=== PATIENT | female | born 1955 | race Caucasian/White ===

== ENCOUNTER 2020-06-25 20:26 | Inpatient (IN) | payer OTHER ==
[2020-06-25] MEDS ORDERED: FENTANYL CITRATE INJ/PF 100 MCG/2 ML AMPUL IV ONE (20:44)
--- NOTE | 2020-06-25 20:46 | ER Document Report ---
ED General - General Stated Complaint: LEG INJURY Time Seen by Provider: 06/25/20 20:42 Notes: Presents with right thigh pain and deformity. She is stepping down 3 feet from a dog to a boat heard a crunch and fell to the ground. No LOC no head impact no blood thinners. Osteopenia. No numbness or tingling the right leg. Deformed per EMS with some slight shortening and possibly diminished pulse She denies any other injuries and has no other history. - Related Data Allergies/Adverse Reactions: No Known Allergies Allergy (Unverified 06/25/20 21:06) Past Medical History - General Information source: Patient - Social History Smoking Status: Never Smoker Family History: None Review of Systems - Review of Systems Notes: REVIEW OF SYSTEMS GEN: Denies fever, chills, weight loss ENT: Denies sore throat, nasal discharge, ear pain EYES: Denies blurry vision, eye pain, discharge CV: Denies chest pain, palpitations, edema RESP: Denies cough, shortness of breath, wheezing GI: Denies abdominal pain, nausea, vomiting, diarrhea MSK: Right leg pain SKIN: Denies rash, skin lesions LYMPH: Denies swollen glands/lymph nodes NEURO: Denies headache, focal weakness or numbness, dizziness PSYCH: Denies depression, suicidal or homicidal ideation PHYSICAL EXAMINATION General: No acute distress, well-nourished Head: Atraumatic, normocephalic ENT: Mouth normal, oropharynx moist, no exudates or tonsillar enlargement Eyes: Conjunctiva normal, pupils equal, lids normal Neck: No JVD, supple, no guarding CVS: Normal rate, regular rhythm, no murmurs Resp: No resp distress, equal and normal breath sounds bilaterally GI: Nondistended, soft, no tenderness to palpation, no rebound or guarding Ext: Leg shortened and deformed in the femur area with no hematoma or tight compartments. Right pedal pulse slightly decreased but palpable. Skin: No rash, warm Lymphatic: No lymphadeopathy noted Neuro: Awake, alert. Face symmetric. GCS 15. Normal strength and sensation in the right foot. Physical Exam - Vital signs Vitals: Temp 98.5 F 06/25/20 21:07 Course - Re-evaluation Re-evalutation: 06/25/20 21:01 Isolated right leg injury likely reflects femoral shaft fracture X-ray confirms After the leg was straightened for the x-ray the pulse improved. No neuro deficits. Will get basic labs and x-ray joint above and below Discussed with Dr. Pineda from orthopedics will admit and repair the fracture 06/25/20 22:41 X-ray shows transverse femoral shaft fracture. With the leg extended and slightly stretched length is nearly restored and the pulses good this is as of example at about 10:30 PM. Pain is controlled compartment is soft neuro status intact. Spent over 2 hours since I requested traction per Dr. Pineda he is not sure where to get it or not sure where to get it clinical nursing intern is trying to find it. Labs normal. Discussed with patient and . Will admit and will be repaired in the morning. - Vital Signs Vital signs: Temp Pulse Resp BP Pulse Ox 98.5 F 19 123/69 95 06/25/20 21:11 06/25/20 22:01 06/25/20 22:01 06/25/20 22:01 - Laboratory Result Diagrams: 06/25/20 21:30 06/25/20 21:30 - Diagnostic Test Radiology reviewed: Image reviewed, Reports reviewed Discharge - Discharge Clinical Impression: Right femoral shaft fracture Qualifiers: Encounter type: initial encounter Fracture type: closed Fracture morphology: transverse Fracture alignment: displaced Qualified Code(s): S72.321A - Displaced transverse fracture of shaft of right femur, initial encounter for closed fracture Condition: Fair Disposition: ADMITTED INPATIENT Admitting Provider: Carmelo Pineda ORTHO Unit Admitted: Surgical Floor
[2020-06-25] MEDS ORDERED: DEXTROSE 5%-LACTATED RINGERS 1,000 ML IV PRN (21:11)
[2020-06-25] MEDS ORDERED: MAGNESIUM HYDROXIDE SUSP 30 ML UDCUP PO PRN (21:11)
[2020-06-25] MEDS ORDERED: MAG HYDROX/AL HYDROX/SIMETH SUSP 30 ML UDCUP PO PRN (21:11)
[2020-06-25] MEDS ORDERED: ZOLPIDEM TARTRATE 5 MG TABLET PO PRN (21:11)
[2020-06-25] MEDS ORDERED: CYCLOBENZAPRINE HCL 10 MG TABLET PO PRN (21:25)
[2020-06-25] MEDS ORDERED: OXYCODONE HCL IR 5 MG TABLET PO PRN (21:26)
--- NOTE | 2020-06-25 21:35 | RADIOLOGY REPORT (SQ) ---
CLINICAL INDICATION: fall def. Pain post fall. TECHNIQUE: 2 view(s) were obtained of the right knee. Imaging somewhat oblique COMPARISON: None. FINDINGS: No acute displaced fracture is identified of the knee. Alignment appears anatomic. Joint spaces are within normal limits for age. No significant joint effusion. Surrounding soft tissues are unremarkable. IMPRESSION: No evidence of acute displaced fracture of the knee.
[2020-06-25 21:40] LABS: ABSOLUTE MONOCYTES (AUTO) 0.6 10^3/uL (0.1-1.4); ABSOLUTE NEUT (AUTO) 7.4 10^3/uL (1.7-8.2); BASOPHILS % (AUTO) 0.5 % (0-2); EOSINOPHILS % (AUTO) 0.3 % (0-6); HEMATOCRIT 37.3 % (36.0-47.0); HEMOGLOBIN 13.1 g/dL (12.0-15.5); LYMPHOCYTES % (AUTO) 10.6 % (13-45); MEAN CORPUSCULAR VOLUME 94 fl (80-97); MONOCYTES % (AUTO) 6.8 % (3-13); PLATELET COUNT 306 10^3/uL (150-450); RED BLOOD COUNT 3.96 10^6/uL (3.72-5.28); RED CELL DISTRIBUTION WIDTH 13.1 % (11.5-14.0); SEGMENTED NEUTROPHILS % (AUTO) 81.8 % (42-78); TOTAL CELLS COUNTED % (AUTO) 100 %
--- NOTE | 2020-06-25 21:42 | RADIOLOGY REPORT (SQ) ---
EXAM DESCRIPTION: XR FEMUR 2 VIEWS COMPLETED DATE/TME: 06/25/2020 20:42 CLINICAL HISTORY: 64 years, Female, fall def COMPARISON: None. NUMBER OF VIEWS: 5 TECHNIQUE: Frontal and lateral radiographs were obtained LIMITATIONS: None. FINDINGS: Visualized is an oblique fracture involving the right mid femoral diaphysis with anterior and lateral displacement of the distal fracture fragment. Superimposed apex lateral angulation is noted. No additional osseous anomalies are appreciated. IMPRESSION: Displaced/angulated oblique fracture involving the right mid femoral diaphysis. copyright 2010 [employer]- All Rights Reserved
[2020-06-25] MEDS: MORPHINE SULFATE 10 MG/ML INJ IV PRN (21:48)
[2020-06-25] MEDS: ONDANSETRON HCL INJ/PF 4 MG/2 ML SDV IV PRN (21:49)
[2020-06-25 21:58] LABS: ANION GAP 7 (5-19); BLOOD UREA NITROGEN 21 mg/dL (7-20); CALCIUM 9.3 mg/dL (8.4-10.2); CARBON DIOXIDE 27 mmol/L (22-30); CHLORIDE 107 mmol/L (98-107); GLUCOSE 123 mg/dL (75-110); POTASSIUM 3.9 mmol/L (3.6-5.0)
[2020-06-25] MEDS: OXYCODONE HCL IR 5 MG TABLET PO PRN (22:49)
[2020-06-26] MEDS: ACETAMINOPHEN 650 MG SUPP.RECT PR SCH ×4 (00:27→21:22)
[2020-06-26] MEDS: MORPHINE SULFATE 10 MG/ML INJ IV PRN ×5 (01:46→14:19)
[2020-06-26] MEDS: OXYCODONE HCL IR 5 MG TABLET PO PRN ×2 (02:52→21:26)
[2020-06-26] MEDS ORDERED: HYDRALAZINE HCL INJ/PF 20 MG/1 ML SDV IV PRN (03:24)
[2020-06-26] MEDS ORDERED: LORAZEPAM INJ 2 MG/1 ML VIAL IV PRN (03:24)
--- NOTE | 2020-06-26 03:24 | PDOC CONSULTATION ---
Consultation Consult Date: 06/25/20 Attending physician:: REY PINEDA JR Provider Consulted: JAKE BURROUGHS Consult reason:: Medical clearance for surgery History of Present Illness Admission Date/PCP: 06/25/20 21:24 No local PCP Patient complains of: Right thigh pain History of Present Illness: GEMINI NORTON is a 64 year old female who presented to the emergency room with acute right thigh pain. She admits stepping down from a a height of approximately 3 feet landing on her feet, but she experienced immediate pain in her right thigh and heard a crunching sound as she fell to the ground. The severe sharp gripping and grinding pain in her right thigh has been continuous since that time and does not radiate, but is made worse by any movement of the right leg. She denies other associated or accompanying signs and symptoms. She denies prior similar episodes. She has not identified any additional aggravating or ameliorating factors for her right thigh pain. In the emergency room she was found to have a oblique displaced right femoral midshaft fracture. She was subsequently admitted to the hospital to Dr. Pineda's care and he has asked the hospitalist service for consultation and medical clearance for surgery. Past Medical History Cardiac Medical History: Denies: Coronary Artery Disease, Hyperlipidema, Hypertension Pulmonary Medical History: Denies: Asthma, Chronic Obstructive Pulmonary Disease (COPD) EENT Medical History: Denies: Cataracts, Ears - Hearing aids Neurological Medical History: Denies: Hemorrhagic CVA, Ischemic CVA, Seizures Endocrine Medical History: Reports: Obesity Denies: Diabetes Mellitus Type 1, Diabetes Mellitus Type 2, Hyperthyroidism, Hypothyroidism Renal/ Medical History: Denies: Chronic Kidney Disease, Nephrolithiasis Malignancy Medical History: Reports: None GI Medical History: Denies: Cirrhosis, Gastroesophageal Reflux Disease, Hepatitis, Peptic Ulcer Disease Musculoskeltal Medical History: Reports: Other - Osteoporosis Denies: Arthritis, Fibromyalgia, Gout Skin Medical History: Denies: Eczema, Psoriasis Psychiatric Medical History: Denies: Alcohol Dependency, Depression, Substance Abuse, Tobacco Dependency Traumatic Medical History: Reports: None Hematology: Denies: Anemia, Bleeding Tendencies Infectious Medical History: Reports: None Past Surgical History Past Surgical History: Reports: Appendectomy, Orthopedic Surgery - Left foot and ankle surgery "to repair the arch" Social History Information Source: Patient Lives with: Spouse/Significant other Smoking Status: Never Smoker Electronic Cigarette use?: No Frequency of Alcohol Use: Occasional Hx Recreational Drug Use: No Drugs: None Hx Prescription Drug Abuse: No - Advance Directive Resuscitation Status: Full Code Surrogate healthcare decision maker:: Claudio Norton Family History Family History: denies: CAD, DM, Hypertension, Malignancy Parental Family History Reviewed: Yes Children Family History Reviewed: No Sibling(s) Family History Reviewed.: Yes Medication/Allergy Allergies/Adverse Reactions: No Known Allergies Allergy (Unverified 06/25/20 21:06) Review of Systems Constitutional: ABSENT: chills, fever(s) Eyes: ABSENT: visual disturbances, other - Eye pain Ears: ABSENT: hearing changes, other - Ear pain Nose, Mouth, and Throat: ABSENT: headache(s), sore throat Cardiovascular: ABSENT: chest pain, palpitations Respiratory: ABSENT: cough, dyspnea Gastrointestinal: ABSENT: abdominal pain, constipation, diarrhea, nausea, vomiting Genitourinary: ABSENT: dysuria, hematuria Musculoskeletal: ABSENT: back pain, joint swelling, muscle weakness Integumentary: ABSENT: pruritus, rash Neurological: ABSENT: confusion, convulsions, focal weakness, memory loss, syncope Psychiatric: ABSENT: anxiety, depression Endocrine: ABSENT: cold intolerance, heat intolerance Hematologic/Lymphatic: ABSENT: easy bleeding, easy bruising Allergic/Immunologic: ABSENT: seasonal rhinorrhea Physical Exam Vital Signs: Temp Pulse Resp BP Pulse Ox 98.2 F 77 20 140/72 H 99 06/25/20 23:49 06/25/20 23:49 06/25/20 23:49 06/25/20 23:49 06/25/20 23:49 Intake & Output 06/24/20 06/25/20 06/26/20 23:59 23:59 23:59 Intake Total 130 260 Output Total 200 Balance 130 60 Weight 72.5 kg General appearance: PRESENT: cooperative, severe distress - Secondary to right thigh pain Head exam: PRESENT: atraumatic, normocephalic Eye exam: PRESENT: conjunctiva pink. ABSENT: conjunctival injection, scleral icterus Ear exam: PRESENT: normal external ear exam. ABSENT: bleeding, drainage Mouth exam: PRESENT: dry mucosa, neck supple Neck exam: ABSENT: thyromegaly, tracheal deviation Respiratory exam: PRESENT: clear to auscultation sivan, symmetrical, unlabored Cardiovascular exam: PRESENT: RRR. ABSENT: clicks, gallop, rubs Pulses: PRESENT: normal radial pulses, normal dorsalis pedis pul Vascular exam: PRESENT: normal capillary refill. ABSENT: pallor GI/Abdominal exam: PRESENT: normal bowel sounds, soft. ABSENT: tenderness Rectal exam: PRESENT: deferred Extremities exam: PRESENT: tenderness - Right thigh. ABSENT: pedal edema Musculoskeletal exam: PRESENT: deformity - Right lower extremity with significant shortening, dislocation - Right thigh Neurological exam: PRESENT: alert, oriented to person, oriented to place, oriented to time, oriented to situation, CN II-XII grossly intact. ABSENT: motor sensory deficit Psychiatric exam: PRESENT: appropriate affect, normal mood Skin exam: PRESENT: dry, intact, warm. ABSENT: jaundice, rash, urticaria Results Laboratory Results: 06/25/20 21:30 06/25/20 21:30 06/25/20 06/25/20 21:30 21:30 WBC 9.0 RBC 3.96 Hgb 13.1 Hct 37.3 MCV 94 MCH 33.0 MCHC 35.0 RDW 13.1 Plt Count 306 Seg Neutrophils % 81.8 H Sodium 140.7 Potassium 3.9 Chloride 107 Carbon Dioxide 27 Anion Gap 7 BUN 21 H Creatinine 0.67 Est GFR ( Amer) > 60 Glucose 123 H Calcium 9.3 Impressions: Femur X-Ray 06/25/20 20:42 IMPRESSION: Displaced/angulated oblique fracture involving the right mid femoral diaphysis. copyright 2011 [employer]- All Rights Reserved Knee X-Ray 06/25/20 20:42 IMPRESSION: No evidence of acute displaced fracture of the knee. Assessment and Plan - Diagnosis (1) Closed displaced oblique fracture of shaft of right femur Qualifiers: Encounter type: initial encounter Qualified Code(s): S72.331A - Displaced oblique fracture of shaft of right femur, initial encounter for closed fracture Is this a current diagnosis for this admission?: Yes (2) Osteoporosis Qualifiers: Osteoporosis type: unspecified Presence of current pathological fracture: unspecified Qualified Code(s): M81.0 - Age-related osteoporosis without current pathological fracture Is this a current diagnosis for this admission?: Yes (3) Acute pain of right thigh Is this a current diagnosis for this admission?: Yes (4) Obesity (BMI 30.0-34.9) Is this a current diagnosis for this admission?: Yes - Plan Summary Summary: Patient is medically cleared for surgical repair of her right femoral fracture. She will be treated with IV fluids utilizing D5LR at 167 mL/h. She will receive morphine sulfate 2 to 4 mg IV every 2 hours as needed for pain. She will receive Ativan 1 mg IV every 4 hours as needed for anxiety or restlessness. She will be n.p.o. for surgery. - Time Time Spent with patient: 15-24 minutes Medications reviewed and adjusted accordingly: Yes Anticipated Discharge Disposition: Home with Home Health Anticipated Discharge Timeframe: Undetermined - Inpatient Certification Based on my medical assessment, after consideration of the patient's comorbidities, presenting symptoms, or acuity I expect that the services needed warrant INPATIENT care.: Yes I certify that my determination is in accordance with my understanding of Medicare's requirements for reasonable and necessary INPATIENT services [42 CFR 412.3e].: Yes Medical Necessity: Need for Pain Control, Need for Surgery
[2020-06-26] MEDS: PANTOPRAZOLE SODIUM 20 MG TABLET.DR PO SCH (05:18)
[2020-06-26] MEDS: DEXTROSE 5%-LACTATED RINGERS 1,000 ML IV PRN ×2 (08:13→14:14)
--- NOTE | 2020-06-26 08:45 | EKG REPORT ---
SEVERITY:- ABNORMAL ECG - SINUS RHYTHM NONSPECIFIC T ABNORMALITIES, INFERIOR LEADS BORDERLINE PROLONGED QT INTERVAL : Confirmed by: Serjio Mosquera MD 26-Jun-2020 08:44:03
[2020-06-26] MEDS: DOCUSATE SODIUM 100 MG CAPSULE PO SCH (09:19)
[2020-06-26] MEDS ORDERED: CEFAZOLIN 2 GM/D5W RTU 2 GM/50 ML RTUPB IV ONE (15:58)
--- NOTE | 2020-06-26 15:58 | PDOC H&P ---
History of Present Illness Admission Date/PCP: 06/25/20 21:24 Patient complains of: right thight pain History of Present Illness: GEMINI RIOS is a 64 year old female who was on her boat yesterday when she twisted her leg as she was stepping down feeling a pop in the right thigh and subsequent pain and inability to ambulate. She denies any prior history of pain in the thigh. She denies any other symptoms such as loss of motor function or numbness in the right lower extremity. She did not fall and cause head injury or other associated injury. Pain is located in the thigh, severe, 8 out of 10, worse with any motion, improved with rest, improved with pain medication, aching in nature. Past Medical History Cardiac Medical History: Denies: Coronary Artery Disease, Hyperlipidema, Hypertension Pulmonary Medical History: Denies: Asthma, Chronic Obstructive Pulmonary Disease (COPD) EENT Medical History: Denies: Cataracts, Ears - Hearing aids Neurological Medical History: Denies: Hemorrhagic CVA, Ischemic CVA, Seizures Endocrine Medical History: Reports: Obesity Denies: Diabetes Mellitus Type 1, Diabetes Mellitus Type 2, Hyperthyroidism, Hypothyroidism Renal/ Medical History: Denies: Chronic Kidney Disease, Nephrolithiasis Malignancy Medical History: Reports: None GI Medical History: Denies: Cirrhosis, Gastroesophageal Reflux Disease, Hepatitis, Peptic Ulcer Disease Musculoskeltal Medical History: Reports: Other - Osteoporosis Denies: Arthritis, Fibromyalgia, Gout Skin Medical History: Denies: Eczema, Psoriasis Psychiatric Medical History: Denies: Alcohol Dependency, Depression, Substance Abuse, Tobacco Dependency Traumatic Medical History: Reports: None Hematology: Denies: Anemia, Bleeding Tendencies Infectious Medical History: Reports: None Past Surgical History Past Surgical History: Reports: Appendectomy, Orthopedic Surgery - Left foot and ankle surgery "to repair the arch" Social History Lives with: Spouse/Significant other Smoking Status: Never Smoker Electronic Cigarette use?: No Frequency of Alcohol Use: Occasional Hx Recreational Drug Use: No Drugs: None Hx Prescription Drug Abuse: No - Advance Directive Resuscitation Status: Full Code Family History Family History: denies: CAD, DM, Hypertension, Malignancy Parental Family History Reviewed: No Children Family History Reviewed: NA Sibling(s) Family History Reviewed.: NA Medication/Allergy Home Medications: Aspirin [Adult Aspirin Regimen] 162 mg PO DAILY 06/26/20 Calcium Carbonate [Calcium] 500 mg PO DAILY 06/26/20 Cholecalciferol (Vitamin D3) [Vitamin D3] 50 mcg PO DAILY 06/26/20 Cyanocobalamin (Vitamin B-12) [B-12] 1,000 mcg PO DAILY 06/26/20 Liraglutide [Saxenda] 18 mg INJ ASDIR PRN 06/26/20 Mv,Calcium,Min/Iron/Folic/Vitk [Multi For Her Tablet] 1 each PO DAILY 06/26/20 Eek-3/Dha/Epa/Fish Oil [Fish Oil 1,000 mg Softgel] 1 each PO DAILY 06/26/20 Allergies/Adverse Reactions: No Known Allergies Allergy (Unverified 06/25/20 21:06) Review of Systems Review of Systems: Constitutional: ABSENT: anorexia, chills, night sweats Cardiovascular: ABSENT: chest pain Respiratory: ABSENT: dyspnea Gastrointestinal: ABSENT: vomiting Genitourinary: ABSENT: dysuria Integumentary: ABSENT: rash Neurological: ABSENT: confusion, memory loss, numbness Psychiatric: ABSENT: hallucinations Hematologic/Lymphatic: ABSENT: easy bleeding Physical Exam Vital Signs: Temp Pulse Resp BP Pulse Ox 98.2 F 73 16 125/76 100 06/26/20 11:23 06/26/20 11:23 06/26/20 11:23 06/26/20 11:23 06/26/20 11:23 Intake & Output 06/25/20 06/26/20 06/27/20 06:59 06:59 06:59 Intake Total 390 1870 Output Total 320 300 Balance 70 1570 Weight 72.5 kg Physical Exam: General appearance: PRESENT: no acute distress, cooperative, well-nourished Head exam: PRESENT: atraumatic, normocephalic Eye exam: PRESENT: EOMI Ear exam: PRESENT: normal external ear exam Mouth exam: PRESENT: neck supple Neck exam: ABSENT: tracheal deviation Respiratory exam: PRESENT: symmetrical, unlabored. ABSENT: accessory muscle use, wheezes Pulses: PRESENT: normal radial pulses, normal dorsalis pedis pulse Vascular exam: PRESENT: normal capillary refill GI/Abdominal exam: ABSENT: distended, firm Musculoskeletal exam: PRESENT: full ROM, normal inspection of all 4 extremities aside from that noted below. Neurological exam: PRESENT: alert, awake, oriented to person, oriented to place, oriented to time Psychiatric exam: PRESENT: appropriate affect. ABSENT: agitated Focused psych exam: ABSENT: catatonic Skin exam: PRESENT: intact. ABSENT: dry All as above aside from that noted in the HPI and the following: Right lower extremity -Pulses 2+ distally -Compartments soft -Sensation grossly intact to L3-4-5 S1 -Motor grossly intact to EHL TA gastroc and quad Leg shortened externally rotated, skin intact. Results Laboratory Results: 06/25/20 21:30 06/25/20 21:30 06/25/20 06/25/20 21:30 21:30 WBC 9.0 RBC 3.96 Hgb 13.1 Hct 37.3 MCV 94 MCH 33.0 MCHC 35.0 RDW 13.1 Plt Count 306 Seg Neutrophils % 81.8 H Sodium 140.7 Potassium 3.9 Chloride 107 Carbon Dioxide 27 Anion Gap 7 BUN 21 H Creatinine 0.67 Est GFR ( Amer) > 60 Glucose 123 H Calcium 9.3 Impressions: Femur X-Ray 06/25/20 20:42 IMPRESSION: Displaced/angulated oblique fracture involving the right mid femoral diaphysis. copyright 2011 [employer]- All Rights Reserved Knee X-Ray 06/25/20 20:42 IMPRESSION: No evidence of acute displaced fracture of the knee. Assessment & Plan - Diagnosis (1) Right femoral shaft fracture Qualifiers: Encounter type: initial encounter Fracture type: closed Fracture morphology: transverse Fracture alignment: displaced Qualified Code(s): S72.321A - Displaced transverse fracture of shaft of right femur, initial encounter for closed fracture Plan: Plan for operative intervention today Will be weightbearing as tolerated after surgery Physical therapy occupational therapy She has a history of blood clots so we will place her on Lovenox postoperatively She is to leave the dressings in place until seen in the office We will follow her postoperatively for pain control and rehabilitative potential. Ancef 2 g x 2 postoperatively. - Time Anticipated Discharge Disposition: Home, Self Care Anticipated Discharge Timeframe: within 72 hours
[2020-06-26] MEDS ORDERED: CEFAZOLIN SODIUM 2 GM in DEXTROSE 5%-WATER 100 ML IV ONE (16:30)
[2020-06-26] MEDS ORDERED: KETAMINE HCL INJ 500 MG/10 ML VIAL ONE (16:39)
[2020-06-26] MEDS ORDERED: PROPOFOL INJ 200 MG/20 ML VIAL IV ONE ×2 (16:39→20:11)
[2020-06-26] MEDS ORDERED: ONDANSETRON HCL INJ/PF 4 MG/2 ML SDV ONE (16:39)
[2020-06-26] MEDS ORDERED: MIDAZOLAM 2 MG/2 ML INJ ONE (16:39)
[2020-06-26] MEDS ORDERED: FENTANYL CITRATE INJ/PF 100 MCG/2 ML AMPUL ONE (16:39)
[2020-06-26] MEDS ORDERED: EPHEDRINE SULFATE INJ 50 MG/1 ML AMPULE ONE (17:43)
[2020-06-26] MEDS ORDERED: PROMETHAZINE HCL INJ 25 MG/1 ML VIAL IV PRN (18:18)
[2020-06-26] MEDS ORDERED: DIPHENHYDRAMINE HCL 50 MG/ML VIAL IV PRN (18:18)
[2020-06-26] MEDS ORDERED: MORPHINE SULFATE 10 MG/ML INJ IV PRN (18:18)
[2020-06-26] MEDS ORDERED: FENTANYL CITRATE INJ/PF 100 MCG/2 ML AMPUL IV PRN (18:18)
--- NOTE | 2020-06-26 20:14 | Operative Report ---
Operative Report DATE OF SURGERY: 06/26/20 PREOPERATIVE DIAGNOSIS: Right femoral shaft fracture POSTOPERATIVE DIAGNOSIS: Right femoral shaft fracture OPERATION: Right femur intramedullary nail with open reduction. SURGEON: REY SHIRLEY JR ANESTHESIA: Spinal COMPLICATIONS: None ESTIMATED BLOOD LOSS: 350 PROCEDURE: The patient was brought to the operating suite and provided with a spinal anesthesia. There were then laid supine on the operating table. 2 g Ancef were provided preoperatively. Patient was then transferred to the operating table and placed in the lateral position on a beanbag. The right lower extremity was then prepped and draped in sterile sterile fashion. A timeout was performed followed by marking the incision and proceeding with the proximal incision through the gluteus and abductor's to allow for placement of the K wire onto the greater trochanter. This was done under fluoroscopic guidance. Upon appropriate placement in the greater trochanter this was passed into the femoral canal followed by over reaming. After adequate reaming a ball- tipped guidewire was attempted to be passed across the fracture site. We had difficulty in achieving this and used a "finger" device in order to help manipulate the fracture site. Still there was considerable amount of preoperative shortening and muscular tension that prevented adequate reduction to allow for passage of the ball-tipped guidewire. I then made the decision to proceed with opening the fracture site. The fracture site was identified on fluoroscopy and incision was made through the skin followed by Bovie cautery through the adipose layer and then subsequent incision through the fascia with blunt dissection to the fracture site. After the fracture site was adequately exposed I was able to directly reduce with tension and rotation to allow for the passage of the ball-tipped guidewire. After this was done appropriate position of the distal femur was confirmed with the utilization of fluoroscopy at the knee. We then proceeded to ream until we achieved a cortical chatter. This was done at approximately 13.5 mm. We decided to choose a 12 mm nail. The nail was measured out to 360 mm. I proceeded to gently impact the nail into the femur with fluoroscopic guidance ensuring that we are not going to malposition the fracture propagate the fracture with a malpositioned nail. Upon crossing the fracture site we were able to rotate the fracture in order to keep it in. After this the nail was passed to the knee and AP and lateral fluoroscopy were again taken. We returned our attention to the proximal femur where we placed the trocar through the guide arm and made a small incision to allow for passage of the trochars to the lateral cortex of the femur. Guidewires were used to ensure appropriate positioning of the screws in the center of the head and these were measured to a 90 and 95 respectively. These were then drilled and screws were subsequently placed and again checked to ensure appropriate incisional fluoroscopy. After this we returned our attention to the distal screw holes were reobtained perfect lateral position made small incisions to the skin that were then bluntly dissected down with a hemostat and then proceeded to drill through the distal screw holes with fluoroscopic guidance. The screws were then measured and placed in each had excellent bite. After this the fracture was once again x-rayed for final fluoroscopy. The wounds were copiously irrigated with Betadine solution followed by a 0 PDS suturing the proximal fascial layer. 2-0 Monocryl was then used in the adipose layer and the subcutaneous layer. The skin layer was closed with syl. A sterile dressing was placed followed by awakening the patient and transferred to PACU in stable condition.
[2020-06-26] MEDS: ENOXAPARIN SODIUM INJ 30 MG/0.3 ML DISP.SYRIN SUBCUT SCH (21:25)
[2020-06-26] MEDS ORDERED: CEFAZOLIN 2 GM/D5W RTU 2 GM/50 ML RTUPB IV SCH (22:00)
[2020-06-26] MEDS: CEFAZOLIN SODIUM 2 GM in DEXTROSE 5%-WATER 100 ML IV SCH (22:19)
[2020-06-27] MEDS: OXYCODONE HCL IR 5 MG TABLET PO PRN ×5 (01:39→20:45)
[2020-06-27] MEDS: ACETAMINOPHEN 650 MG SUPP.RECT PR SCH ×3 (05:18→21:03)
[2020-06-27] MEDS: PANTOPRAZOLE SODIUM 20 MG TABLET.DR PO SCH (05:43)
[2020-06-27] MEDS: CEFAZOLIN SODIUM 2 GM in DEXTROSE 5%-WATER 100 ML IV SCH ×3 (05:43→21:03)
[2020-06-27 06:55] LABS: MEAN CORPUSCULAR HEMOGLOBIN 32.9 pg (27.0-33.4); MEAN CORPUSCULAR HGB CONC 34.8 g/dL (32.0-36.0); MEAN CORPUSCULAR VOLUME 95 fl (80-97); PLATELET COUNT 207 10^3/uL (150-450); RED BLOOD COUNT 3.18 10^6/uL (3.72-5.28); RED CELL DISTRIBUTION WIDTH 13.1 % (11.5-14.0); WHITE BLOOD COUNT 7.7 10^3/uL (4.0-10.5)
[2020-06-27 07:03] LABS: HEMOGLOBIN 10.4 g/dL (12.0-15.5)
--- NOTE | 2020-06-27 08:06 | PDOC PROGRESS REPORT ---
Subjective Progress Note for:: 06/27/20 Subjective:: Patient doing well this morning. No acute events overnight. Reports improvement in pain control since surgery. Reports difficulty moving her leg due to heaviness sensation. Reason For Visit: RIGHT FEMORAL SHAFT FRACTURE Physical Exam Vital Signs: Temp Pulse Resp BP Pulse Ox 99.0 F 107 H 18 91/53 L 93 06/27/20 03:41 06/27/20 03:41 06/27/20 03:41 06/27/20 03:41 06/27/20 03:41 Intake & Output 06/26/20 06/27/20 06/28/20 06:59 06:59 06:59 Intake Total 390 6599 Output Total 320 2400 Balance 70 4199 Weight 72.5 kg 79.5 kg Physical Exam: No acute distress, alert and oriented x3 Right lower extremity -Pulses 2+ distally -Compartments soft -Sensation grossly intact to L3-4-5 S1 -Motor grossly intact to EHL TA gastroc and quad Dressings clean dry and intact Results Laboratory Results: 06/27/20 05:56 06/25/20 21:30 06/27/20 05:56 WBC 7.7 RBC 3.18 L Hgb 10.4 L D Hct 30.0 L MCV 95 MCH 32.9 MCHC 34.8 RDW 13.1 Plt Count 207 Impressions: Knee X-Ray 06/25/20 20:42 IMPRESSION: No evidence of acute displaced fracture of the knee. Assessment & Plan - Diagnosis (1) Right femoral shaft fracture Qualifiers: Encounter type: initial encounter Fracture type: closed Fracture morphology: transverse Fracture alignment: displaced Qualified Code(s): S72.321A - Displaced transverse fracture of shaft of right femur, initial encounter for closed fracture Is this a current diagnosis for this admission?: Yes Plan: - 2 doses of Ancef postoperatively q 8 hours to complete 24 hours perioperatively -Weightbearing as tolerated, no precautions, encourage out of bed RENUKA for ADL training - PT/OT -Lovenox for DVT prophylaxis -multimodal pain management to avoid excessive narcotics, including gabapentin, tramadol, Toradol, acetaminophen. -Dressing should not be removed for 7 to 10 days until seen in the office -May shower with the dressing intact, if it starts to come off she should not get the incision wet. -Follow-up with Dr. Sree Pineda, orthopedic surgeon at [facility] surgery, in 10 days. Call for an appointment. . [address], [place] [address] - Time Time Spent with patient: Less than 15 minutes
[2020-06-27 08:14] LABS: APPEARANCE,URINE SLIGHTLY-CLOUDY; BILIRUBIN,URINE NEGATIVE (NEGATIVE); CALCIUM OXALATE CRYSTALS,URINE FEW /HPF; COLOR,URINE YELLOW; GLUCOSE, URINE NEGATIVE (NEGATIVE); KETONES,URINE NEGATIVE (NEGATIVE); LEUKOCYTE ESTERASE,URINE NEGATIVE (NEGATIVE); NITRITE,URINE NEGATIVE (NEGATIVE); PROTEIN,URINE NEGATIVE (NEGATIVE); URINE SPECIFIC GRAVITY 1.023; UROBILINOGEN,URINE NEGATIVE mg/dL (<2.0)
[2020-06-27] MEDS ORDERED: NORMAL SALINE 1000 ML 1,000 ML IV ONE ×3 (08:57→19:45)
--- NOTE | 2020-06-27 09:07 | RADIOLOGY REPORT (SQ) ---
EXAM DESCRIPTION: FEMUR RIGHT IMAGES COMPLETED DATE/TIME: 06/26/2020 9:08 pm REASON FOR STUDY: ORIF RT FEMUR COMPARISON: AP and lateral views of the right femur from 06/25/2020. FLUOROSCOPY TIME: 3.4 minutes. 10 images submitted to PACS. TECHNIQUE: Intra-operative fluoroscopic images of the right femur were obtained during an open reduc tion and internal fixation of a femoral diaphyseal fracture. NUMBER OF IMAGES: 10 LIMITATIONS: None. FINDINGS: Refer to the separate operative report. IMPRESSION: IMAGE(S) OBTAINED DURING PROCEDURE. COMMENT: Quality ID [id number]: Final reports for procedures using fluoroscopy that document radiation exp osure indices, or exposure time and number of fluorographic images (if radiation exposure indices are not available) Please consult full operative report of the attending physician for description of the procedure. TECHNICAL DOCUMENTATION: JOB ID: [id number] 2010 [employer]- All Rights Reserved Reading location - IP/workstation name: [email or web address]
--- NOTE | 2020-06-27 09:28 | RADIOLOGY REPORT (SQ) ---
EXAM DESCRIPTION: FEMUR LEFT IMAGES COMPLETED DATE/TIME: 06/26/2020 8:52 pm REASON FOR STUDY: eval for pathologic fracture etiology COMPARISON: None. NUMBER OF VIEWS: Two views. TECHNIQUE: AP and lateral views of the left femur were obtained. LIMITATIONS: None. FINDINGS: MINERALIZATION: Osteopenia. BONES: There is asymmetric cortical thickening along the lateral surface of the femoral diaphysis. SOFT TISSUES: Jones catheter. OTHER: Osteoarthrosis of the lateral femorotibial compartment. IMPRESSION: Asymmetric cortical thickening along the lateral surface of the femoral diaphysis. The appearance is typical of a bisphosphonate-related stress fracture. TECHNICAL DOCUMENTATION: JOB ID: [id number] 2010 [employer]- All Rights Reserved Reading location - IP/workstation name: [email or web address]
--- NOTE | 2020-06-27 09:33 | RADIOLOGY REPORT (SQ) ---
EXAM DESCRIPTION: FEMUR RIGHT IMAGES COMPLETED DATE/TIME: 06/26/2020 8:52 pm REASON FOR STUDY: post op COMPARISON: AP and lateral views of the right femur from 06/25/2020. NUMBER OF VIEWS: Two views. TECHNIQUE: AP and lateral views of the right femur were obtained. LIMITATIONS: None. FINDINGS: MINERALIZATION: Osteopenia. BONES: Status post open reduction and internal fixation of a displaced oblique fracture of the femora l diaphysis with placement of an antegrade intramedullary nail affixed in place with 2 proximal parti ally threaded cannulated cancellous fixation screw and 2 distal cortical screws. The alignment of th e fracture is near anatomic. SOFT TISSUES: Surgical cutaneous syl. OTHER: No other finding. IMPRESSION: Status post open reduction and internal fixation of a displaced oblique fracture of the femoral diaphysis with placement of an antegrade intramedullary nail affixed in place with 2 proximal partially threaded cannulated cancellous fixation screw and 2 distal cortical screws. The alignment of the fracture is near anatomic. TECHNICAL DOCUMENTATION: JOB ID: [id number] 2010 [employer]- All Rights Reserved Reading location - IP/workstation name: [email or web address]
--- NOTE | 2020-06-27 09:50 | RADIOLOGY REPORT (SQ) ---
EXAM DESCRIPTION: NO G FLUORO IMAGES COMPLETED DATE/TIME: 06/26/2020 9:08 pm REASON FOR STUDY: ORIF RT FEMUR COMPARISON: None. FLUOROSCOPY TIME: Less than one hour. LIMITATIONS: None. PROCEDURE: Fluoroscopy was provided for intraprocedural guidance. No images were stored in PACS. IMPRESSION: Intraprocedural fluoroscopy was provided. No images were stored in PACS. Correlate with the procedural report. COMMENT: Quality ID 145: Final reports for procedures using fluoroscopy that document radiation exp osure indices, or exposure time and number of fluorographic images (if radiation exposure indices are not available) TECHNICAL DOCUMENTATION: JOB ID: [id number] 2010 [employer]- All Rights Reserved Reading location - IP/workstation name: [email or web address]
[2020-06-27] MEDS: DOCUSATE SODIUM 100 MG CAPSULE PO SCH (09:54)
[2020-06-27] MEDS: ENOXAPARIN SODIUM INJ 30 MG/0.3 ML DISP.SYRIN SUBCUT SCH ×2 (09:54→21:03)
[2020-06-27] MEDS ORDERED: ENOXAPARIN SODIUM INJ 30 MG/0.3 ML DISP.SYRIN SUBCUT SCH (10:00)
[2020-06-27] MEDS: ONDANSETRON HCL INJ/PF 4 MG/2 ML SDV IV PRN (12:03)
[2020-06-27] MEDS ORDERED: ACETAMINOPHEN 325 MG TABLET PO PRN ×3 (15:53→19:25)
[2020-06-27] MEDS ORDERED: ACETAMINOPHEN 325 MG TABLET ONE (16:20)
--- NOTE | 2020-06-27 18:06 | RADIOLOGY REPORT (SQ) ---
EXAM DESCRIPTION: CTA CHEST IMAGES COMPLETED DATE/TIME: 06/27/2020 5:44 pm REASON FOR STUDY: Rule out PE COMPARISON: None. TECHNIQUE: CT scan of the chest performed using helical scanning technique with dynamic intravenous contrast injection. Images reviewed with lung, soft tissue and bone windows. Reconstructed coronal and sagittal MPR images reviewed. Additional 3 dimensional post-processing performed to develop Maximal Intensity Projection images (IA P). All images stored on PACS. All CT scanners at this facility use dose modulation, iterative reconstruction, and/or weight based d osing when appropriate to reduce radiation dose to as low as reasonably achievable (ALARA). [facility]: Dose Right [facility]: CareDose [facility]: Dose Right [facility]: Teradose 4D [facility]: MedSynergies CONTRAST TYPE AND DOSE: contrast/concentration: Isovue 350.00 mmol/ml; Total Contrast Delivered: 59. 0 ml; Total Saline Delivered: 55.0 ml Contrast bolus adequate for pulmonary arteries and aorta. RENAL FUNCTION: Not reported on intake paperwork. RADIATION DOSE: CT Rad equipment meets quality standard of care and radiation dose reduction techniq ues were employed. CTDIvol: 16.2 - 33.1 mGy. DLP: 591 mGy-cm. . LIMITATIONS: None. FINDINGS: LUNGS AND PLEURA: Dependent atelectasis. No masses, infiltrates, or pneumothorax. No ple ural effusions or pleural calcifications. Incidental note is made of scattered fissure lymph nodes a nd 2 to 3 mm pulmonary nodules. AORTA AND GREAT VESSELS: No aneurysm. No dissection. HEART: No pericardial effusion. No significant coronary artery calcifications. PULMONARY ARTERIES: No emboli visualized in the main pulmonary arteries or the segmental branches. HILAR AND MEDIASTINAL STRUCTURES: No identified masses or abnormal nodes. HARDWARE: None in the chest. UPPER ABDOMEN: No significant findings. Limited exam. THYROID AND OTHER SOFT TISSUES: No masses. No adenopathy. BONES: No acute or significant finding. 3D MIPS: Confirm above findings. OTHER: No other significant finding. IMPRESSION: No evidence of central or segmental pulmonary embolus. COMMENT: Quality ID # [id number]: Final reports with documentation of one or more dose reduction techniques (e.g., Automated exposure control, adjustment of the mA and/or kV according to patient size, use of iterative reconstruction technique) TECHNICAL DOCUMENTATION: JOB ID: [id number] [employer]- All Rights Reserved Reading location - IP/workstation name: [email or web address]
--- NOTE | 2020-06-27 18:46 | PDOC PROGRESS REPORT ---
Subjective Progress Note for:: 06/27/20 Subjective:: She is feeling well today. States the pain in her RLE is improved. Denies feeling lightheaded/dizzy. She feels nauseated, and thinks this is due to pain meds. Reason For Visit: RIGHT FEMORAL SHAFT FRACTURE, MEDICAL CONSULT Physical Exam Vital Signs: Temp Pulse Resp BP Pulse Ox 100.5 F H 100 17 96/53 L 94 06/27/20 15:47 06/27/20 15:47 06/27/20 15:47 06/27/20 15:47 06/27/20 15:47 Intake & Output 06/26/20 06/27/20 06/28/20 06:59 06:59 06:59 Intake Total 390 6599 2100 Output Total 320 2400 Balance 70 4199 2100 Weight 72.5 kg 79.5 kg General appearance: PRESENT: no acute distress Eye exam: ABSENT: scleral icterus Mouth exam: PRESENT: moist Neck exam: ABSENT: JVD Respiratory exam: PRESENT: clear to auscultation sivan, unlabored. ABSENT: tachypnea Cardiovascular exam: PRESENT: RRR Pulses: PRESENT: +2 pedal pulses bilateral GI/Abdominal exam: PRESENT: normal bowel sounds, soft. ABSENT: tenderness Extremities exam: PRESENT: other - RLE bandages not removed Neurological exam: PRESENT: alert, awake, oriented to person, oriented to place, oriented to time, oriented to situation Psychiatric exam: PRESENT: appropriate affect Skin exam: ABSENT: rash Results Laboratory Results: 06/27/20 05:56 06/25/20 21:30 06/27/20 06/27/20 05:56 07:27 WBC 7.7 RBC 3.18 L Hgb 10.4 L D Hct 30.0 L MCV 95 MCH 32.9 MCHC 34.8 RDW 13.1 Plt Count 207 Urine Color YELLOW Urine Appearance SLIGHTLY-CLOUDY Urine pH 5.0 Ur Specific [place] 1.023 Urine Protein NEGATIVE Urine Glucose (UA) NEGATIVE Urine Ketones NEGATIVE Urine Blood LARGE H Urine Nitrite NEGATIVE Ur Leukocyte Esterase NEGATIVE Urine WBC (Auto) 5 Urine RBC (Auto) 133 Impressions: Knee X-Ray 06/25/20 20:42 IMPRESSION: No evidence of acute displaced fracture of the knee. Femur X-Ray 06/26/20 00:00 IMPRESSION: Status post open reduction and internal fixation of a displaced oblique fracture of the femoral diaphysis with placement of an antegrade intramedullary nail affixed in place with 2 proximal partially threaded cannulated cancellous fixation screw and 2 distal cortical screws. The alignment of the fracture is near anatomic. Fluoroscopy 06/26/20 00:00 IMPRESSION: Intraprocedural fluoroscopy was provided. No images were stored in PACS. Correlate with the procedural report. Assessment and Plan - Plan Summary Summary: Right femoral shaft fracture s/p ORIF on 06/26 - pain seems to be well controlled - post-op care as per surgery Chronic Hypotension: she states that, at baseline, her BP runs 90/60 and she remains asymptomatic today with similar BPs while inpatient. Today, she received 2 L NS bolus without much change in BP afterwards. She does not seem dehydrated on exam. Will continue to monitor. Fever (100.5 F) and Hypoxemia (88% on RA): concerning for PE versus PNA - CTA chest today negative for PE, fluid or infiltrates, only showed dependent atelectasis which could explain low grade fever and mild hypoxemia - will check BCx, lactate, CBC, BMP - encourage IS and deep breathing - supplemental O2 PRN saturations >90% Post-op Anemia - repeat CBC - transfuse for goal hgb >7 DVT ppx: Lovenox - Time Time Spent with patient: 25-34 minutes Anticipated Discharge Disposition: Home with Home Health Anticipated Discharge Timeframe: within 72 hours
[2020-06-27 19:00] LABS: ABSOLUTE BASOPHILS # (AUTO) 0.1 10^3/uL (0.0-0.2); ABSOLUTE MONOCYTES (AUTO) 0.6 10^3/uL (0.1-1.4); ABSOLUTE NEUT (AUTO) 6.4 10^3/uL (1.7-8.2); BASOPHILS % (AUTO) 0.6 % (0-2); EOSINOPHILS % (AUTO) 0.2 % (0-6); HEMATOCRIT 26.1 % (36.0-47.0); HEMOGLOBIN 9.1 g/dL (12.0-15.5); LYMPHOCYTES % (AUTO) 12.5 % (13-45); MEAN CORPUSCULAR HEMOGLOBIN 33.3 pg (27.0-33.4); MEAN CORPUSCULAR VOLUME 95 fl (80-97); MONOCYTES % (AUTO) 7.2 % (3-13); PLATELET COUNT 178 10^3/uL (150-450); RED BLOOD COUNT 2.75 10^6/uL (3.72-5.28); RED CELL DISTRIBUTION WIDTH 12.6 % (11.5-14.0); SEGMENTED NEUTROPHILS % (AUTO) 79.5 % (42-78); TOTAL CELLS COUNTED % (AUTO) 100 %
[2020-06-27 19:13] LABS: ALBUMIN 2.6 g/dL (3.5-5.0); ALKALINE PHOSPHATASE 36 U/L (38-126); ANION GAP 7 (5-19); ASPARTATE AMINO TRANSFERASE 41 U/L (14-36); BILIRUBIN,DIRECT 0.1 mg/dL (0.0-0.4); BILIRUBIN,TOTAL 0.9 mg/dL (0.2-1.3); BLOOD UREA NITROGEN 10 mg/dL (7-20); CALCIUM 7.7 mg/dL (8.4-10.2); CARBON DIOXIDE 24 mmol/L (22-30); CHLORIDE 104 mmol/L (98-107); GLUCOSE 169 mg/dL (75-110); POTASSIUM 3.3 mmol/L (3.6-5.0); TOTAL PROTEIN 4.6 g/dL (6.3-8.2)
[2020-06-27] MEDS ORDERED: DIPHENHYDRAMINE HCL 25 MG CAPSULE PO PRN (19:25)
[2020-06-27] MEDS ORDERED: NORMAL SALINE 250 ML IV PRN ×2 (19:25)
--- NOTE | 2020-06-27 20:47 | EKG REPORT ---
SEVERITY:- BORDERLINE ECG - SINUS RHYTHM BORDERLINE T ABNORMALITIES, INFERIOR LEADS : Confirmed by: Serjio Mosquera MD 27-Jun-2020 20:46:29
[2020-06-27] MEDS: RINGERS SOLUTION,LACTATED 1,000 ML IV PRN (21:03)
[2020-06-27] MEDS: POTASSI CL 20 MEQ/50 ML RIDER 20 MEQ/50 ML RTUPB IV SCH ×2 (21:58→23:30)
[2020-06-28] MEDS: OXYCODONE HCL IR 5 MG TABLET PO PRN ×4 (02:11→22:25)
[2020-06-28] MEDS: ACETAMINOPHEN 650 MG SUPP.RECT PR SCH ×3 (05:10→22:18)
[2020-06-28] MEDS: PANTOPRAZOLE SODIUM 20 MG TABLET.DR PO SCH (05:15)
[2020-06-28] MEDS: CEFAZOLIN SODIUM 2 GM in DEXTROSE 5%-WATER 100 ML IV SCH ×3 (05:15→22:18)
[2020-06-28 09:17] LABS: ABSOLUTE EOSINOPHILS # (AUTO) 0.1 10^3/uL (0.0-0.6); ABSOLUTE LYMPHOCYTES (AUTO) 0.9 10^3/uL (0.5-4.7); ABSOLUTE MONOCYTES (AUTO) 0.8 10^3/uL (0.1-1.4); ABSOLUTE NEUT (AUTO) 8.5 10^3/uL (1.7-8.2); BASOPHILS % (AUTO) 0.4 % (0-2); EOSINOPHILS % (AUTO) 0.7 % (0-6); HEMATOCRIT 30.8 % (36.0-47.0); HEMOGLOBIN 10.9 g/dL (12.0-15.5); MEAN CORPUSCULAR HGB CONC 35.5 g/dL (32.0-36.0); MEAN CORPUSCULAR VOLUME 93 fl (80-97); PLATELET COUNT 203 10^3/uL (150-450); RED BLOOD COUNT 3.31 10^6/uL (3.72-5.28); SEGMENTED NEUTROPHILS % (AUTO) 81.9 % (42-78); TOTAL CELLS COUNTED % (AUTO) 100 %; WHITE BLOOD COUNT 10.3 10^3/uL (4.0-10.5)
[2020-06-28] MEDS: ENOXAPARIN SODIUM INJ 30 MG/0.3 ML DISP.SYRIN SUBCUT SCH ×2 (09:39→22:18)
[2020-06-28] MEDS: DOCUSATE SODIUM 100 MG CAPSULE PO SCH (09:39)
[2020-06-28 09:43] LABS: ALKALINE PHOSPHATASE 48 U/L (38-126); ANION GAP 8 (5-19); ASPARTATE AMINO TRANSFERASE 48 U/L (14-36); BILIRUBIN,DIRECT 0.2 mg/dL (0.0-0.4); BILIRUBIN,TOTAL 0.9 mg/dL (0.2-1.3); BLOOD UREA NITROGEN 9 mg/dL (7-20); CALCIUM 8.1 mg/dL (8.4-10.2); CARBON DIOXIDE 23 mmol/L (22-30); CHLORIDE 106 mmol/L (98-107); GLUCOSE 147 mg/dL (75-110); POTASSIUM 3.9 mmol/L (3.6-5.0); TOTAL PROTEIN 5.2 g/dL (6.3-8.2)
[2020-06-28 10:00] LABS: APPEARANCE,URINE SLIGHTLY-CLOUDY; BILIRUBIN,URINE NEGATIVE (NEGATIVE); COLOR,URINE YELLOW; GLUCOSE, URINE NEGATIVE (NEGATIVE); KETONES,URINE TRACE mg/dL (NEGATIVE); LEUKOCYTE ESTERASE,URINE TRACE (NEGATIVE); NITRITE,URINE NEGATIVE (NEGATIVE); PROTEIN,URINE 30 mg/dL (NEGATIVE); URINE SPECIFIC GRAVITY 1.026; UROBILINOGEN,URINE NEGATIVE mg/dL (<2.0)
[2020-06-28] MEDS: RINGERS SOLUTION,LACTATED 1,000 ML IV PRN (13:10)
--- NOTE | 2020-06-28 13:26 | PDOC PROGRESS REPORT ---
Subjective Progress Note for:: 06/28/20 Subjective:: Patient is doing well this morning, no acute events overnight. She did have some difficulty getting to the bathroom however I have counseled her on the need to start getting up and getting about and pushing through some of her pain. Her pain is not been very well controlled, I had counseled her on the expectations. Reason For Visit: RIGHT FEMORAL SHAFT FRACTURE Physical Exam Vital Signs: Temp Pulse Resp BP Pulse Ox 100.1 F 103 H 19 106/52 L 86 L 06/28/20 10:00 06/28/20 07:32 06/28/20 07:32 06/28/20 07:32 06/28/20 09:14 Intake & Output 06/27/20 06/28/20 06/29/20 06:59 06:59 06:59 Intake Total 6599 4638 1440 Output Total 2400 560 Balance 4199 4078 1440 Weight 79.5 kg 79.6 kg Physical Exam: No acute distress, alert and oriented x3 Right lower extremity -Pulses 2+ distally -Compartments soft -Sensation grossly intact to L3-4-5 S1 -Motor grossly intact to EHL TA gastroc and quad Wounds clean dry and intact -Moderate thigh swelling as would be expected at this time postoperatively. Results Laboratory Results: 06/28/20 09:05 06/28/20 09:05 06/27/20 06/27/20 06/27/20 18:08 18:08 18:08 WBC 8.0 RBC 2.75 L Hgb 9.1 L Hct 26.1 L MCV 95 MCH 33.3 MCHC 35.0 RDW 12.6 Plt Count 178 Seg Neutrophils % 79.5 H Sodium 134.7 L Potassium 3.3 L Chloride 104 Carbon Dioxide 24 Anion Gap 7 BUN 10 Creatinine 0.62 Est GFR ( Amer) > 60 Glucose 169 H Lactic Acid 2.9 H Calcium 7.7 L Magnesium 1.7 Total Bilirubin 0.9 AST 41 H Alkaline Phosphatase 36 L Total Protein 4.6 L Albumin 2.6 L Urine Color Urine Appearance Urine pH Ur Specific [place] Urine Protein Urine Glucose (UA) Urine Ketones Urine Blood Urine Nitrite Ur Leukocyte Esterase Urine WBC (Auto) Urine RBC (Auto) Blood Type Antibody Screen 06/27/20 06/28/20 06/28/20 20:00 09:05 09:05 WBC 10.3 RBC 3.31 L Hgb 10.9 L Hct 30.8 L MCV 93 MCH 33.0 MCHC 35.5 RDW 13.0 Plt Count 203 Seg Neutrophils % 81.9 H Sodium Potassium Chloride Carbon Dioxide Anion Gap BUN Creatinine Est GFR ( Amer) Glucose Lactic Acid 3.2 H Calcium Magnesium Total Bilirubin AST Alkaline Phosphatase Total Protein Albumin Urine Color Urine Appearance Urine pH Ur Specific [place] Urine Protein Urine Glucose (UA) Urine Ketones Urine Blood Urine Nitrite Ur Leukocyte Esterase Urine WBC (Auto) Urine RBC (Auto) Blood Type A POSITIVE Antibody Screen NEGATIVE 06/28/20 06/28/20 09:05 09:29 WBC RBC Hgb Hct MCV MCH MCHC RDW Plt Count Seg Neutrophils % Sodium 137.4 Potassium 3.9 Chloride 106 Carbon Dioxide 23 Anion Gap 8 BUN 9 Creatinine 0.53 Est GFR ( Amer) > 60 Glucose 147 H Lactic Acid Calcium 8.1 L Magnesium 2.0 Total Bilirubin 0.9 AST 48 H Alkaline Phosphatase 48 Total Protein 5.2 L Albumin 3.0 L Urine Color YELLOW Urine Appearance SLIGHTLY-CLOUDY Urine pH 5.0 Ur Specific [place] 1.026 Urine Protein 30 H Urine Glucose (UA) NEGATIVE Urine Ketones TRACE H Urine Blood MODERATE H Urine Nitrite NEGATIVE Ur Leukocyte Esterase TRACE H Urine WBC (Auto) 12 Urine RBC (Auto) 2 Blood Type Antibody Screen Impressions: Knee X-Ray 06/25/20 20:42 IMPRESSION: No evidence of acute displaced fracture of the knee. Femur X-Ray 06/26/20 00:00 IMPRESSION: Status post open reduction and internal fixation of a displaced oblique fracture of the femoral diaphysis with placement of an antegrade intramedullary nail affixed in place with 2 proximal partially threaded cannulated cancellous fixation screw and 2 distal cortical screws. The alignme nt of the fracture is near anatomic. Fluoroscopy 06/26/20 00:00 IMPRESSION: Intraprocedural fluoroscopy was provided. No images were stored in PACS. Correlate with the procedural report. Chest/Abdomen CTA 06/27/20 00:00 IMPRESSION: No evidence of central or segmental pulmonary embolus. Assessment & Plan - Diagnosis (1) Right femoral shaft fracture Qualifiers: Encounter type: initial encounter Fracture type: closed Fracture morphology: transverse Fracture alignment: displaced Qualified Code(s): S72.321A - Displaced transverse fracture of shaft of right femur, initial encounter for closed fracture Is this a current diagnosis for this admission?: Yes Plan: -Weightbearing as tolerated, no precautions, encourage out of bed RENUKA for ADL training - PT/OT - Keep knee extended in bed, rolled towel under the ankle to obtain full extension -aspirin 325 daily for DVT prophylaxis for 6 weeks -multimodal pain management to avoid excessive narcotics, including gabapentin, tramadol, Toradol, acetaminophen. -Dressing changes every other day as needed. -May shower with the dressing intact, if it starts to come off she should not get the incision wet. -Follow-up with Dr. Sree Pineda, orthopedic surgeon at [facility] for surgery, in 10 days. Call for an appointment. . [address], [place] [address] (2) Lesion of left femur Is this a current diagnosis for this admission?: Yes Plan: On x-ray the left femur does have beaking that is consistent with prior bisphosphonate use. This is the same level of her fracture on the right. I had a long conversation with the patient regards to potential treatment options including prophylactic nailing. At this time she is to weightbearing as tolerated on the left leg however she is at increased risk of having a subsequent fracture on the left if she does not undergo prophylactic nailing however I did explain to her that this not required treatment and she has to grief counselor for herself whether or not she wants to take that risk. We will discuss this further with her and subsequent office visits but have counseled her to allow the right femur to heal prior to considering left femoral nail. This would be approximately 2 months. - Time Time Spent with patient: Less than 15 minutes
--- NOTE | 2020-06-28 15:10 | PDOC DISCHARGE SUMMARY ---
Impression - Admit/DC Date/PCP Admission Date/Primary Care Provider: 06/25/20 21:24 Discharge Date: 06/29/20 - Discharge Diagnosis (1) Right femoral shaft fracture Is this a current diagnosis for this admission?: Yes (2) Lesion of left femur Is this a current diagnosis for this admission?: Yes - Assessment Summary: The patient is a 64-year-old female presented to the emergency department after low level fall with the right femur fracture. She was admitted to the hospital for operative management including perioperative clearance and postoperative medical management and pain control. The hospital service was contacted for medical management, active management. Their recommendations were followed throughout the course of her stay. On 06/26/2020 she was deemed stable for surgery and underwent a open reduction antegrade femoral reconstructive nail. She tolerated the procedure well and was transferred the PACU in stable condition. On postoperative day 1 she had some difficulty with pain control and did not perform exceptionally well with physical therapy. Her Jones was removed that morning and by the evening time she was able to get out of bed and void on the toilet. She received 2 g Ancef every 8 for 24-hour prophylactic coverage. She was made weightbearing as tolerated on postoperative day #2 she performed better with physical therapy. Pain medication as prescribed improved her overall pain experience. She was prescribed Lovenox for DVT prophylaxis. She had no acute events or complications but did have an episode of hypotension which was near her baseline chronic hypotension. Medicine treated with fluid resuscitation however the patient remained asymptomatic. Additionally she had an episode of hypoxemia and was treated successfully with 2 L of oxygen. Her hemoglobin was monitored and found to be stable throughout the course of her stay. On postoperative day #4 she was deemed stable for discharge home. - Additional Information Resuscitation Status: Full Code Discharge Diet: As Tolerated Discharge Activity: Activity As Tolerated, No Driving, Keep Legs Elevated, No Lifting/Push/Pulling, No tub bath, Walk Frequently Referrals: REY SHIRLEY JR, DO [ACTIVE PROVISIONAL STAFF] - 07/03/20 9:20 am Prescriptions: Enoxaparin Sodium [Lovenox Inj 30 mg/0.3 ml Disp.syrin] 30 mg SUBCUT Q12 42 Days disp.syrin Oxycodone HCl [Oxy-Ir 5 mg Tablet] 5 mg PO Q4HP PRN #40 tablet PRN Reason: Home Medications: Aspirin [Adult Aspirin Regimen] 162 mg PO DAILY 06/26/20 Calcium Carbonate [Calcium] 500 mg PO DAILY 06/26/20 Cholecalciferol (Vitamin D3) [Vitamin D3] 50 mcg PO DAILY 06/26/20 Cyanocobalamin (Vitamin B-12) [B-12] 1,000 mcg PO DAILY 06/26/20 Liraglutide [Saxenda] 18 mg INJ ASDIR PRN 06/26/20 Mv,Calcium,Min/Iron/Folic/Vitk [Multi For Her Tablet] 1 each PO DAILY 06/26/20 [place]-3/Dha/Epa/Fish Oil [Fish Oil 1,000 mg Softgel] 1 each PO DAILY 06/26/20 Acetaminophen [Tylenol 650 mg Supp] 975 mg OK Q8 supp.rect 06/28/20 Docusate Sodium [Colace 100 mg Capsule] 100 mg PO DAILY capsule 06/28/20 Enoxaparin Sodium [Lovenox Inj 30 mg/0.3 ml Disp.syrin] 30 mg SUBCUT Q12 42 Days disp.syrin 06/28/20 Oxycodone HCl [Oxy-Ir 5 mg Tablet] 5 mg PO Q4HP PRN #40 tablet 06/28/20 History of Present Illiness History of Present Illness: GEMINI RIOS is a 64 year old female who was on her boat yesterday when she twisted her leg as she was stepping down feeling a pop in the right thigh and subsequent pain and inability to ambulate. She denies any prior history of pain in the thigh. She denies any other symptoms such as loss of motor function or numbness in the right lower extremity. She did not fall and cause head injury or other associated injury. Pain is located in the thigh, severe, 8 out of 10, worse with any motion, improved with rest, improved with pain medication, aching in nature. Physical Exam Vital Signs: Temp Pulse Resp BP Pulse Ox 99.5 F 96 17 95/58 L 94 06/28/20 13:33 06/28/20 13:33 06/28/20 13:33 06/28/20 13:33 06/28/20 13:33 Intake & Output 06/27/20 06/28/20 06/29/20 06:59 06:59 06:59 Intake Total 6577 4647 1440 Output Total 4429 560 Balance 4199 407 1440 Weight 79.5 kg 79.6 kg Results Laboratory Results: WBC 10.3 10^3/uL (4.0-10.5) 06/28/20 09:05 RBC 3.31 10^6/uL (3.72-5.28) L 06/28/20 09:05 Hgb 10.9 g/dL (12.0-15.5) L 06/28/20 09:05 Hct 30.8 % (36.0-47.0) L 06/28/20 09:05 MCV 93 fl (80-97) 06/28/20 09:05 MCH 33.0 pg (27.0-33.4) 06/28/20 09:05 MCHC 35.5 g/dL (32.0-36.0) 06/28/20 09:05 RDW 13.0 % (11.5-14.0) 06/28/20 09:05 Plt Count 203 10^3/uL (150-450) 06/28/20 09:05 Lymph % (Auto) 9.0 % (13-45) L 06/28/20 09:05 Walker % (Auto) 8.0 % (3-13) 06/28/20 09:05 Eos % (Auto) 0.7 % (0-6) 06/28/20 09:05 Baso % (Auto) 0.4 % (0-2) 06/28/20 09:05 Absolute Neuts (auto) 8.5 10^3/uL (1.7-8.2) H 06/28/20 09:05 Absolute Lymphs (auto) 0.9 10^3/uL (0.5-4.7) 06/28/20 09:05 Absolute Monos (auto) 0.8 10^3/uL (0.1-1.4) 06/28/20 09:05 Absolute Eos (auto) 0.1 10^3/uL (0.0-0.6) 06/28/20 09:05 Absolute Basos (auto) 0.0 10^3/uL (0.0-0.2) 06/28/20 09:05 Seg Neutrophils % 81.9 % (42-78) H 06/28/20 09:05 Sodium 137.4 mmol/L (137-145) 06/28/20 09:05 Potassium 3.9 mmol/L (3.6-5.0) 06/28/20 09:05 Chloride 106 mmol/L (98-107) 06/28/20 09:05 Carbon Dioxide 23 mmol/L (22-30) 06/28/20 09:05 Anion Gap 8 (5-19) 06/28/20 09:05 BUN 9 mg/dL (7-20) 06/28/20 09:05 Creatinine 0.53 mg/dL (0.52-1.25) 06/28/20 09:05 Est GFR ( Amer) > 60 (>60) 06/28/20 09:05 Est GFR (MDRD) Non-Af > 60 (>60) 06/28/20 09:05 Glucose 147 mg/dL (75-110) H 06/28/20 09:05 Lactic Acid 3.2 mmol/L (0.7-2.1) H 06/28/20 09:05 Calcium 8.1 mg/dL (8.4-10.2) L 06/28/20 09:05 Magnesium 2.0 mg/dL (1.6-2.3) 06/28/20 09:05 Total Bilirubin 0.9 mg/dL (0.2-1.3) 06/28/20 09:05 Direct Bilirubin 0.2 mg/dL (0.0-0.4) 06/28/20 09:05 Neonat Total Bilirubin Not Reportable 06/28/20 09:05 Neonat Direct Bilirubin Not Reportable 06/28/20 09:05 Neonat Indirect Bili Not Reportable 06/28/20 09:05 AST 48 U/L (14-36) H 06/28/20 09:05 ALT 18 U/L (<35) 06/28/20 09:05 Alkaline Phosphatase 48 U/L (38-126) 06/28/20 09:05 Total Protein 5.2 g/dL (6.3-8.2) L 06/28/20 09:05 Albumin 3.0 g/dL (3.5-5.0) L 06/28/20 09:05 Urine Color YELLOW 06/28/20 09:29 Urine Appearance SLIGHTLY-CLOUDY 06/28/20 09:29 Urine pH 5.0 (5.0-9.0) 06/28/20 09:29 Ur Specific [place] 1.026 06/28/20 09:29 Urine Protein 30 mg/dL (NEGATIVE) H 06/28/20 09:29 Urine Glucose (UA) NEGATIVE mg/dL (NEGATIVE) 06/28/20 09:29 Urine Ketones TRACE mg/dL (NEGATIVE) H 06/28/20 09:29 Urine Blood MODERATE (NEGATIVE) H 06/28/20 09:29 Urine Nitrite NEGATIVE (NEGATIVE) 06/28/20 09:29 Urine Bilirubin NEGATIVE (NEGATIVE) 06/28/20 09:29 Urine Urobilinogen NEGATIVE mg/dL (<2.0) 06/28/20 09:29 Ur Leukocyte Esterase TRACE (NEGATIVE) H 06/28/20 09:29 Urine WBC (Auto) 12 /HPF 06/28/20 09:29 Urine RBC (Auto) 2 /HPF 06/28/20 09:29 U Hyaline Cast (Auto) 1 /LPF 06/28/20 09:29 Squamous Epi Cells Auto 5 /HPF 06/28/20 09:29 Calcium Oxalate Cr Auto FEW /HPF 06/27/20 07:27 Urine Mucus (Auto) RARE /LPF 06/28/20 09:29 Urine Ascorbic Acid NEGATIVE (NEGATIVE) 06/28/20 09:29 SARS-CoV-2 (PCR) NEGATIVE (NEGATIVE) 06/26/20 11:59 Blood Type A POSITIVE 06/27/20 20:00 Blood Type Confirm A POSITIVE 06/27/20 20:30 Antibody Screen NEGATIVE 06/27/20 20:00 Crossmatch See Detail 06/27/20 20:00 Impressions: Femur X-Ray 06/25/20 20:42 IMPRESSION: Displaced/angulated oblique fracture involving the right mid femoral diaphysis. copyright 2010 [employer]- All Rights Reserved Knee X-Ray 06/25/20 20:42 IMPRESSION: No evidence of acute displaced fracture of the knee. Femur X-Ray 06/26/20 00:00 IMPRESSION: IMAGE(S) OBTAINED DURING PROCEDURE. Femur X-Ray 06/26/20 00:00 IMPRESSION: Asymmetric cortical thickening along the lateral surface of the femoral diaphysis. The appearance is typical of a bisphosphonate-related stress fracture. Femur X-Ray 06/26/20 00:00 IMPRESSION: Status post open reduction and internal fixation of a displaced oblique fracture of the femoral diaphysis with placement of an antegrade intramedullary nail affixed in place with 2 proximal partially threaded cannulated cancellous fixation screw and 2 distal cortical screws. The alignment of the fracture is near anatomic. Fluoroscopy 06/26/20 00:00 IMPRESSION: Intraprocedural fluoroscopy was provided. No images were stored in PACS. Correlate with the procedural report. Chest/Abdomen CTA 06/27/20 00:00 IMPRESSION: No evidence of central or segmental pulmonary embolus. Stroke Is this a Stroke Patient?: No Acute Heart Failure Is this a Heart Failure Patient?: No
--- NOTE | 2020-06-28 16:03 | RADIOLOGY REPORT (SQ) ---
EXAM DESCRIPTION: CHEST SINGLE VIEW IMAGES COMPLETED DATE/TIME: 06/28/2020 3:49 pm REASON FOR STUDY: hypoxemia COMPARISON: None. EXAM PARAMETERS: NUMBER OF VIEWS: One view. TECHNIQUE: Single frontal radiographic view of the chest acquired. RADIATION DOSE: NA LIMITATIONS: None. FINDINGS: LUNGS AND PLEURA: No opacities, masses or pneumothorax. No pleural effusion. MEDIASTINUM AND HILAR STRUCTURES: No masses. Contour normal. HEART AND VASCULAR STRUCTURES: Heart normal in size. Normal vasculature. BONES: No acute findings. HARDWARE: None in the chest. OTHER: No other significant finding. IMPRESSION: NO ACUTE RADIOGRAPHIC FINDING IN THE CHEST. TECHNICAL DOCUMENTATION: JOB ID: [id number] 2010 [employer]- All Rights Reserved Reading location - IP/workstation name: [email or web address]
[2020-06-28] MEDS ORDERED: POTASSI CL 20 MEQ/NS 1L 1,000 ML IV PRN (17:18)
[2020-06-28] MEDS ORDERED: NORMAL SALINE 1000 ML 1,000 ML IV ONE (17:19)
--- NOTE | 2020-06-28 17:30 | PDOC PROGRESS REPORT ---
Subjective Progress Note for:: 06/28/20 Subjective:: She is feeling okay. Has pain in RLE which has limited her PT sessions. Endorsing SOB, OSPINA. Denies fevers/chills, cough, abd pain, diarrhea, dysuria. Reason For Visit: RIGHT FEMORAL SHAFT FRACTURE Physical Exam Vital Signs: Temp Pulse Resp BP Pulse Ox 98.9 F 110 H 18 127/66 H 96 06/28/20 15:38 06/28/20 15:38 06/28/20 15:38 06/28/20 15:38 06/28/20 15:38 Intake & Output 06/27/20 06/28/20 06/29/20 06:59 06:59 06:59 Intake Total 6599 4638 1440 Output Total 2400 560 Balance 4199 4078 1440 Weight 79.5 kg 79.6 kg General appearance: PRESENT: no acute distress Eye exam: ABSENT: scleral icterus Mouth exam: PRESENT: dry mucosa Throat exam: ABSENT: post pharyngeal erythema, tonsillar erythema, tonsillar exudate Neck exam: ABSENT: JVD Respiratory exam: PRESENT: clear to auscultation sivan, symmetrical, unlabored. ABSENT: accessory muscle use, crackles, decreased breath sounds, rales, rhonchi, wheezes Cardiovascular exam: PRESENT: RRR GI/Abdominal exam: PRESENT: normal bowel sounds, soft. ABSENT: tenderness Extremities exam: PRESENT: other - LLE surgical site does not appear red/infected, no surrounding erythema/induration Neurological exam: PRESENT: alert, awake, oriented to person, oriented to place, oriented to time, oriented to situation. ABSENT: altered Psychiatric exam: PRESENT: appropriate affect Results Laboratory Results: 06/28/20 09:05 06/28/20 09:05 06/27/20 06/27/20 06/27/20 18:08 18:08 18:08 WBC 8.0 RBC 2.75 L Hgb 9.1 L Hct 26.1 L MCV 95 MCH 33.3 MCHC 35.0 RDW 12.6 Plt Count 178 Seg Neutrophils % 79.5 H Sodium 134.7 L Potassium 3.3 L Chloride 104 Carbon Dioxide 24 Anion Gap 7 BUN 10 Creatinine 0.62 Est GFR ( Amer) > 60 Glucose 169 H Lactic Acid 2.9 H Calcium 7.7 L Magnesium 1.7 Total Bilirubin 0.9 AST 41 H Alkaline Phosphatase 36 L Total Protein 4.6 L Albumin 2.6 L Urine Color Urine Appearance Urine pH Ur Specific [place] Urine Protein Urine Glucose (UA) Urine Ketones Urine Blood Urine Nitrite Ur Leukocyte Esterase Urine WBC (Auto) Urine RBC (Auto) Blood Type Antibody Screen 06/27/20 06/28/20 06/28/20 20:00 09:05 09:05 WBC 10.3 RBC 3.31 L Hgb 10.9 L Hct 30.8 L MCV 93 MCH 33.0 MCHC 35.5 RDW 13.0 Plt Count 203 Seg Neutrophils % 81.9 H Sodium Potassium Chloride Carbon Dioxide Anion Gap BUN Creatinine Est GFR ( Amer) Glucose Lactic Acid 3.2 H Calcium Magnesium Total Bilirubin AST Alkaline Phosphatase Total Protein Albumin Urine Color Urine Appearance Urine pH Ur Specific [place] Urine Protein Urine Glucose (UA) Urine Ketones Urine Blood Urine Nitrite Ur Leukocyte Esterase Urine WBC (Auto) Urine RBC (Auto) Blood Type A POSITIVE Antibody Screen NEGATIVE 06/28/20 06/28/20 09:05 09:29 WBC RBC Hgb Hct MCV MCH MCHC RDW Plt Count Seg Neutrophils % Sodium 137.4 Potassium 3.9 Chloride 106 Carbon Dioxide 23 Anion Gap 8 BUN 9 Creatinine 0.53 Est GFR ( Amer) > 60 Glucose 147 H Lactic Acid Calcium 8.1 L Magnesium 2.0 Total Bilirubin 0.9 AST 48 H Alkaline Phosphatase 48 Total Protein 5.2 L Albumin 3.0 L Urine Color YELLOW Urine Appearance SLIGHTLY-CLOUDY Urine pH 5.0 Ur Specific [place] 1.026 Urine Protein 30 H Urine Glucose (UA) NEGATIVE Urine Ketones TRACE H Urine Blood MODERATE H Urine Nitrite NEGATIVE Ur Leukocyte Esterase TRACE H Urine WBC (Auto) 12 Urine RBC (Auto) 2 Blood Type Antibody Screen Impressions: Knee X-Ray 06/25/20 20:42 IMPRESSION: No evidence of acute displaced fracture of the knee. Femur X-Ray 06/26/20 00:00 IMPRESSION: Status post open reduction and internal fixation of a displaced oblique fracture of the femoral diaphysis with placement of an antegrade intramedullary nail affixed in place with 2 proximal partially threaded cannulated cancellous fixation screw and 2 distal cortical screws. The alignment of the fracture is near anatomic. Fluoroscopy 06/26/20 00:00 IMPRESSION: Intraprocedural fluoroscopy was provided. No images were stored in PACS. Correlate with the procedural report. Chest/Abdomen CTA 06/27/20 00:00 IMPRESSION: No evidence of central or segmental pulmonary embolus. Chest X-Ray 06/28/20 00:00 IMPRESSION: NO ACUTE RADIOGRAPHIC FINDING IN THE CHEST. Assessment and Plan - Plan Summary Summary: Right femoral shaft fracture s/p ORIF on 06/26 - post-op care as per orthopedic surgery Chronic Hypotension: she states that, at baseline, her BP runs 90/60 and she remains asymptomatic with similar BPs while inpatient. Fever (100.5 F) and Hypoxemia (88% on RA): concerning for PE versus PNA versus atelectasis. CTA chest today negative for PE, fluid or infiltrates, only showed dependent atelectasis which could explain low grade fever and mild hypoxemia - encourage IS and deep breathing - Jones catheter removed today - supplemental O2 PRN saturations >90%, wean as tolerated - BCx show NGTD, and she remains on IV antibiotics post-operatively Post-op Anemia - stable x2 days - transfuse for goal hgb >7 Lactic Acidosis: minimally elevated in the s/o poor PO intake, mild dehydration - start continuous IVF at 100 ml/hr after a IVF bolus - encourage oral intake - recheck lactate with AM labs DVT ppx: Lovenox - Time Time Spent with patient: 35 or more minutes Anticipated Discharge Disposition: Home with Home Health Anticipated Discharge Timeframe: within 24 hours
[2020-06-28] MEDS: TRAMADOL HCL 50 MG TABLET PO PRN (18:08)
[2020-06-28] MEDS: POLYETHYLENE GLYCOL 3350 POWDER 17 GM/1 PACKET PO SCH (18:09)
[2020-06-28] MEDS ORDERED: SENNOSIDES/DOCUSATE 8.6-50 MG 1 EACH TABLET PO SCH (22:00)
[2020-06-29] MEDS: CEFAZOLIN SODIUM 2 GM in DEXTROSE 5%-WATER 100 ML IV SCH (05:31)
[2020-06-29] MEDS: PANTOPRAZOLE SODIUM 20 MG TABLET.DR PO SCH (05:32)
[2020-06-29] MEDS: ACETAMINOPHEN 650 MG SUPP.RECT PR SCH ×2 (05:32→13:45)
--- NOTE | 2020-06-29 06:39 | PDOC PROGRESS REPORT ---
Subjective Progress Note for:: 06/29/20 Subjective:: Patient much improved today. She worked well with physical therapy yesterday. She is not on oxygen this morning. Hospitalist has worked her up for potential PE which was negative with CTA. Reason For Visit: RIGHT FEMORAL SHAFT FRACTURE Physical Exam Vital Signs: Temp Pulse Resp BP Pulse Ox 99.0 F 97 18 92/56 L 96 06/28/20 23:08 06/28/20 23:08 06/28/20 23:08 06/28/20 23:08 06/28/20 23:08 Intake & Output 06/27/20 06/28/20 06/29/20 06:59 06:59 06:59 Intake Total 6599 4638 3605 Output Total 2400 560 Balance 4199 4078 3605 Weight 79.5 kg 79.6 kg 80.4 kg Physical Exam: No acute distress, alert and orient x3 Right lower extremity -Pulses 2+ distally -Compartments soft -Sensation grossly intact to L3-4-5 S1 -Motor grossly intact to EHL TA gastroc and quad -Dressings dry and intact, mild spotting. Results Laboratory Results: 06/28/20 09:05 06/28/20 09:05 06/28/20 06/28/20 06/28/20 09:05 09:05 09:05 WBC 10.3 RBC 3.31 L Hgb 10.9 L Hct 30.8 L MCV 93 MCH 33.0 MCHC 35.5 RDW 13.0 Plt Count 203 Seg Neutrophils % 81.9 H Sodium 137.4 Potassium 3.9 Chloride 106 Carbon Dioxide 23 Anion Gap 8 BUN 9 Creatinine 0.53 Est GFR ( Amer) > 60 Glucose 147 H Lactic Acid 3.2 H Calcium 8.1 L Magnesium 2.0 Total Bilirubin 0.9 AST 48 H Alkaline Phosphatase 48 Total Protein 5.2 L Albumin 3.0 L Urine Color Urine Appearance Urine pH Ur Specific [place] Urine Protein Urine Glucose (UA) Urine Ketones Urine Blood Urine Nitrite Ur Leukocyte Esterase Urine WBC (Auto) Urine RBC (Auto) 06/28/20 09:29 WBC RBC Hgb Hct MCV MCH MCHC RDW Plt Count Seg Neutrophils % Sodium Potassium Chloride Carbon Dioxide Anion Gap BUN Creatinine Est GFR ( Amer) Glucose Lactic Acid Calcium Magnesium Total Bilirubin AST Alkaline Phosphatase Total Protein Albumin Urine Color YELLOW Urine Appearance SLIGHTLY-CLOUDY Urine pH 5.0 Ur Specific [place] 1.026 Urine Protein 30 H Urine Glucose (UA) NEGATIVE Urine Ketones TRACE H Urine Blood MODERATE H Urine Nitrite NEGATIVE Ur Leukocyte Esterase TRACE H Urine WBC (Auto) 12 Urine RBC (Auto) 2 Impressions: Knee X-Ray 06/25/20 20:42 IMPRESSION: No evidence of acute displaced fracture of the knee. Femur X-Ray 06/26/20 00:00 IMPRESSION: Status post open reduction and internal fixation of a displaced oblique fracture of the femoral diaphysis with placement of an antegrade intramedullary nail affixed in place with 2 proximal partially threaded cannulated cancellous fixation screw and 2 distal cortical screws. The alig nment of the fracture is near anatomic. Fluoroscopy 06/26/20 00:00 IMPRESSION: Intraprocedural fluoroscopy was provided. No images were stored in PACS. Correlate with the procedural report. Chest/Abdomen CTA 06/27/20 00:00 IMPRESSION: No evidence of central or segmental pulmonary embolus. Chest X-Ray 06/28/20 00:00 IMPRESSION: NO ACUTE RADIOGRAPHIC FINDING IN THE CHEST. Assessment & Plan - Diagnosis (1) Right femoral shaft fracture Qualifiers: Encounter type: initial encounter Fracture type: closed Fracture morphology: transverse Fracture alignment: displaced Qualified Code(s): S72.321A - Displaced transverse fracture of shaft of right femur, initial encounter for closed fracture Is this a current diagnosis for this admission?: Yes Plan: -Weightbearing as tolerated, no precautions, encourage out of bed RENUKA for ADL training - PT/OT - Keep knee extended in bed, rolled towel under the ankle to obtain full extension -Lovenox for DVT prophylaxis for 6 weeks. -multimodal pain management to avoid excessive narcotics, including gabapentin, tramadol, Toradol, acetaminophen. -Dressing changes every other day as needed. -May shower with the dressing intact, if it starts to come off she should not get the incision wet. -Follow-up with Dr. Sree Pineda, orthopedic surgeon at [facility] for surgery, in 10 days. Call for an appointment. . [address], [place] [address] (2) Lesion of left femur Is this a current diagnosis for this admission?: Yes - Time Time Spent with patient: Less than 15 minutes
[2020-06-29 07:17] LABS: HEMATOCRIT 24.6 % (36.0-47.0); MEAN CORPUSCULAR HEMOGLOBIN 33.3 pg (27.0-33.4); MEAN CORPUSCULAR HGB CONC 35.8 g/dL (32.0-36.0); MEAN CORPUSCULAR VOLUME 93 fl (80-97); PLATELET COUNT 163 10^3/uL (150-450); RED BLOOD COUNT 2.64 10^6/uL (3.72-5.28); RED CELL DISTRIBUTION WIDTH 12.9 % (11.5-14.0); WHITE BLOOD COUNT 6.2 10^3/uL (4.0-10.5)
[2020-06-29 07:29] LABS: BLOOD UREA NITROGEN 7 mg/dL (7-20); CALCIUM 7.6 mg/dL (8.4-10.2); GLUCOSE 123 mg/dL (75-110); POTASSIUM 3.2 mmol/L (3.6-5.0)
[2020-06-29 07:33] LABS: HEMOGLOBIN 8.8 g/dL (12.0-15.5)
[2020-06-29 07:34] LABS: CARBON DIOXIDE 30 mmol/L (22-30); CHLORIDE 104 mmol/L (98-107)
[2020-06-29 07:42] LABS: ANION GAP 3 (5-19)
[2020-06-29] MEDS: OXYCODONE HCL IR 5 MG TABLET PO PRN ×2 (09:19→16:07)
[2020-06-29] MEDS: DOCUSATE SODIUM 100 MG CAPSULE PO SCH (09:19)
[2020-06-29] MEDS: ENOXAPARIN SODIUM INJ 30 MG/0.3 ML DISP.SYRIN SUBCUT SCH (09:20)
[2020-06-29] MEDS: POLYETHYLENE GLYCOL 3350 POWDER 17 GM/1 PACKET PO SCH (09:20)
[2020-06-29] MEDS ORDERED: POTASSIUM CHLORIDE 10 MEQ TABLET.ER PO ONE (10:30)
--- NOTE | 2020-06-29 10:55 | PDOC PROGRESS REPORT ---
Subjective Progress Note for:: 06/29/20 Subjective:: +Constipated. Otherwise feeling well. No longer on oxygen, saturating 99% on room air with ambulation during PT. Reason For Visit: RIGHT FEMORAL SHAFT FRACTURE Physical Exam Vital Signs: Temp Pulse Resp BP Pulse Ox 99.3 F 95 16 102/70 89 L 06/29/20 07:44 06/29/20 07:44 06/29/20 07:44 06/29/20 07:44 06/29/20 07:44 Intake & Output 06/28/20 06/29/20 06/30/20 06:59 06:59 06:59 Intake Total 4638 3605 Output Total 560 Balance 4078 3605 Weight 79.6 kg 80.4 kg Results Laboratory Results: 06/29/20 06:32 06/29/20 06:32 06/29/20 06/29/20 06/29/20 06:32 06:32 06:32 WBC 6.2 RBC 2.64 L Hgb 8.8 L D Hct 24.6 L MCV 93 MCH 33.3 MCHC 35.8 RDW 12.9 Plt Count 163 Sodium 136.9 L Potassium 3.2 L Chloride 104 Carbon Dioxide 30 Anion Gap 3 L BUN 7 Creatinine 0.51 L Est GFR ( Amer) > 60 Glucose 123 H Lactic Acid 1.0 Calcium 7.6 L Magnesium 1.9 Impressions: Knee X-Ray 06/25/20 20:42 IMPRESSION: No evidence of acute displaced fracture of the knee. Femur X-Ray 06/26/20 00:00 IMPRESSION: Status post open reduction and internal fixation of a displaced oblique fracture of the femoral diaphysis with placement of an antegrade intramedullary nail affixed in place with 2 proximal partially threaded cannulated cancellous fixation screw and 2 distal cortical screws. The alignment of the fracture is near anatomic. Fluoroscopy 06/26/20 00:00 IMPRESSION: Intraprocedural fluoroscopy was provided. No images were stored in PACS. Correlate with the procedural report. Chest/Abdomen CTA 06/27/20 00:00 IMPRESSION: No evidence of central or segmental pulmonary embolus. Chest X-Ray 06/28/20 00:00 IMPRESSION: NO ACUTE RADIOGRAPHIC FINDING IN THE CHEST. Assessment and Plan - Plan Summary Summary: Right femoral shaft fracture s/p ORIF on 06/26 - post-op care as per orthopedic surgery Chronic Hypotension: she states that, at baseline, her BP runs 90/60 and she remains asymptomatic with similar BPs while inpatient. Fever (100.5 F) and Hypoxemia (88% on RA): likely due to atelectasis and/or post-op fever. CTA chest negative for PE, fluid or infiltrates, only showed dependent atelectasis which could explain low grade fever and mild hypoxemia - encourage IS and deep breathing - Jones catheter removed yesterday - BCx show NGTD - DC antibiotics Post-op Anemia - recommend repeat CBC in 1-2 weeks as outpatient - transfuse for goal hgb >7 Lactic Acidosis: minimally elevated in the s/o poor PO intake, mild dehydration, and resolved with IVF. Constipation: Miralax PRN DVT ppx: Lovenox - Time Time Spent with patient: 15-24 minutes Anticipated Discharge Disposition: Home with Home Health Anticipated Discharge Timeframe: within 24 hours
[2020-06-29] MEDS: POTASSI CL 20 MEQ/50 ML RIDER 20 MEQ/50 ML RTUPB IV SCH ×2 (11:06→13:42)
[2020-06-29] MEDS ORDERED: POLYETHYLENE GLYCOL 3350 POWDER 17 GM/1 PACKET PO ONE (11:30)
[2020-06-29] MEDS: TRAMADOL HCL 50 MG TABLET PO PRN (13:44)
[2020-06-29 16:02] VITALS: BP 125/76
== END 2020-06-29 16:29 | disposition home health service (06) | DRG 481 ==
LOC: ER 20:26 → EH 21:24 → 4S 23:31
PROVIDERS: ADMIT Orthopaedic Surgery; ATTEND Orthopaedic Surgery
PROC: 0QS806Z Reposition Right Femoral Shaft with Intramedullary Internal Fixation Device, Open Approach (ICD-10-PCS; principal; 2020-06-26 12:45)
DX: M80.851A Other osteoporosis with current pathological fracture, right femur, initial encounter for fracture (principal); J98.11 Atelectasis; M80.852A Other osteoporosis with current pathological fracture, left femur, initial encounter for fracture; T45.8X5A Adverse effect of other primarily systemic and hematological agents, initial encounter; X50.1XXA Overexertion from prolonged static or awkward postures, initial encounter; Y92.838 Other recreation area as the place of occurrence of the external cause; I95.9 Hypotension, unspecified; R09.02 Hypoxemia; E86.0 Dehydration; D64.9 Anemia, unspecified; E66.9 Obesity, unspecified; M81.0 Age-related osteoporosis without current pathological fracture; Z20.828 Contact with and (suspected) exposure to other viral communicable diseases
CPT/HCPCS: 01230; 36415; 36430; 71045; 71275; 80048; 80053; 81001; 83605; 83735; 85025; 85027; 86850; 86900; 86901; 86920; 87040; 87070; 87635; 93005; 93010; 94799; 96374; 99140; 99285; C1713; C1769; C9803; J0690; J1650; J2250; J2270; J2405; J2704; J3010; J3480; J3490; J7030; J7060; J7120; J7121; P9016